=== PATIENT | male | born 1990 | race Caucasian/White ===

== ENCOUNTER 2021-09-16 16:04 | Emergency (ER) | payer BC ==
[2021-09-16 16:13] VITALS: BMI 28.0
[2021-09-16] MEDS ORDERED: SODIUM CHLORIDE 0.9% 1000 ML INFUS.BAG IV ONE (16:42)
[2021-09-16] MEDS ORDERED: ACETAMINOPHEN 1000 MG/100 ML VIAL IVPB ONE (16:42)
[2021-09-16] MEDS ORDERED: ACETAMINOPHEN INJECTION 100 ML IVPB ONE (16:46)
[2021-09-16 17:22] LABS: BILIRUBIN,TOTAL 0.5 mg/dl (0.2-1); CALCIUM 8.7 mg/dl (8.5-10); CREATININE 1.2 mg/dl (0.55-1.3); TOT PROT 6.8 g/dl (6.4-8.2)
[2021-09-16 18:40] VITALS: BP 132/78; PULSE 84; TEMP 100.2
[2021-09-16 18:42] LABS: EOS % 0.7 % (0-4.5); HEMATOCRIT 40.4 % (35.4-49); HEMOGLOBIN 13.9 GM/dL (11.7-16.9); LYMPH % 20.5 % (8-40); MCH 29.5 pg (25.7-33.7); MCHC 34.5 g/dl (32.0-35.9); MEAN CELL VOLUME 85.6 fl (80-96); MONO % 17.2 % (3.8-10.2); NEUT % 60.6 % (42.8-82.8); PLATELET COUNT 150 10^3/uL (134-434); RBC 4.72 M/mm3 (4.00-5.60); RDW 13.1 % (11.9-15.9); WHITE BLOOD COUNT 5.2 K/mm3 (4.0-10.0)
== END 2021-09-16 19:09 | disposition home or self-care (01) ==
LOC: FER 16:04
PROC: 3E033GC Introduction of Other Therapeutic Substance into Peripheral Vein, Percutaneous Approach (ICD-10-PCS; principal; 2021-09-16)
DX: R50.9 Fever, unspecified (principal)
CPT/HCPCS: 36415; 80053; 85025; 86308; 87040; 87804; 87807; 93005; 93010; 99284-25; C9803; J0131; U0003; U0005

== ENCOUNTER 2022-02-12 20:39 | Emergency (ER) | payer BC ==
[2022-02-12 20:51] VITALS: BP 154/88; PULSE 92; TEMP 99.7; BMI 28.0
== END 2022-02-12 21:01 | disposition home or self-care (01) ==
LOC: FER 20:39
DX: U07.1 COVID-19 (principal)
CPT/HCPCS: 99281-25